=== PATIENT | female | born 1940 | race Caucasian/White ===

== ENCOUNTER 2017-11-12 06:33 | Emergency (ER) | payer BC, MEDICARE ==
[2017-11-12 07:39] VITALS: BP 138/70
--- NOTE | 2017-11-12 07:53 | ED ---
Upper Extremity Pain - HPI Summary HPI Summary: Patient is a 77-year-old female presenting to the ED with chief complaint of right wrist injury. She states she fell on an outstretched hand last evening while walking her dog. Endorses pain circumferentially both to the dorsum and volar wrists. Decreased ROM. Denies any numbness or tingling throughout. Denies any other injuries. - History of Current Complaint Chief Complaint: EDExtremityUpper Stated Complaint: RT ARM INJURY Time Seen by Provider: 11/12/17 06:41 Hx Obtained From: Patient Onset/Duration: Started Hours Ago Timing: Constant Severity Initially: Moderate Severity Currently: Moderate Pain Location: Wrist Character: Aching Aggravating Factor(s): Movement, Lifting, Flexion, Extension, Internal/External Rotation Alleviating Factor(s): Rest Associated Signs & Symptoms: Negative: Swelling, Redness, Bruising, Weakness, Numbness/Tingling Related History: Dominant Hand Right - Risk Factors Non-Orthopedic Risk Factor: Negative DVT Risk Factors: Negative Septic Arthritis Risk Factor: Negative Compartment Syndrome Risk Factors: Pain - Allergies/Home Medications Allergies/Adverse Reactions: Allergies Allergy/AdvReac Type Severity Reaction Status Date / Time No Known Allergies Allergy Verified 11/12/17 06:36 PMH/Surg Hx/FS Hx/Imm Hx Previously Healthy: Yes - Immunization History Hx Pertussis Vaccination: No Immunizations Up to Date: Unable to Obtain/Confirm Infectious Disease History: No Infectious Disease History: Denies: Traveled Outside the [place] in Last 30 Days - Social History Occupation: Unemployed Lives: With Family Alcohol Use: Rare Hx Substance Use: No Substance Use Type: Reports: None Hx Tobacco Use: No Smoking Status (MU): Never Smoked Tobacco Review of Systems Constitutional: Negative Negative: Fever, Chills, Fatigue, Skin Diaphoresis Negative: Palpitations, Chest Pain Negative: Shortness Of Breath, Cough Gastrointestinal: Negative Positive: Arthralgia Skin: Negative Neurological: Negative All Other Systems Reviewed And Are Negative: Yes Physical Exam Triage Information Reviewed: Yes Vital Signs On Initial Exam: Initial Vitals Temp Pulse Resp BP Pulse Ox 98.5 F 72 20 140/79 95 11/12/17 06:34 11/12/17 06:34 11/12/17 06:34 11/12/17 06:34 11/12/17 06:34 Vital Signs Reviewed: Yes Appearance: Positive: Well-Appearing, No Pain Distress Skin: Positive: Warm, Skin Color Reflects Adequate Perfusion Head/Face: Positive: Normal Head/Face Inspection Eyes: Positive: EOMI, MYRANDA, Conjunctiva Clear Neck: Positive: Supple, No Lymphadenopathy Respiratory/Lung Sounds: Positive: Clear to Auscultation, Breath Sounds Present Cardiovascular: Positive: RRR, Pulses are Symmetrical in both Upper and Lower Extremities Musculoskeletal: Positive: Pain @ - dorsum of the left wrist on palpation - no deformity or ecchymosis noted. Decreased ROM d/t pain Neurological: Positive: Sensory/Motor Intact, Alert, Oriented to Person Place, Time Psychiatric: Positive: Normal Diagnostics - Vital Signs Vital Signs Temp Pulse Resp BP Pulse Ox 11/12/17 07:38 98.4 F 73 16 138/70 95 11/12/17 06:34 98.5 F 72 20 140/79 95 - Laboratory Lab Statement: Any lab studies that have been ordered have been reviewed, and results considered in the medical decision making process. Course/Dx - Course Course Of Treatment: Patient is evaluated for right wrist injury. No obvious deformity. No ecchymosis or erythema. Decreased range of motion. Unable to oppose thumbs. Has not taken any medications [employer]. X-ray obtained which shows no acute fracture. Read by myself, Sera Zabala PA-C as well as Dr. Sparkle M.D. Thumb spica splint placed. - Diagnoses Differential Diagnosis/HQI/PQRI: Positive: Fracture (Closed), Strain, Sprain Provider Diagnoses: Right wrist sprain Discharge - Sign-Out/Discharge Documenting (check all that apply): Patient Departure - Discharge Plan Condition: Stable Disposition: HOME Patient Education Materials: Wrist Sprain (ED) Referrals: No Primary Care Phys,NOPCP [Primary Care Provider] - Additional Instructions: Ibuprofen 600mg three times daily as needed for pain Wrist splint for comfort If you develop any worsening symptoms - return to the ED - Billing Disposition and Condition Condition: STABLE Disposition: Home
--- NOTE | 2017-11-12 08:16 | RAD ---
Indication: Right wrist pain 3 views of the wrist demonstrates no fracture. There may be some degeneration and joint space the radiocarpal joint. Deformity of the distal ulna likely due to old injury. Degenerative changes of the first metacarpal phalangeal joint is noted. IMPRESSION: NO FRACTURE OF THE WRIST IS NOTED. DEGENERATIVE CHANGES OF THE RADIOCARPAL JOINT. DEFORMITY OF THE DISTAL ULNA LIKELY DUE TO OLD INJURY. 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
== END 2017-11-12 07:38 | disposition home or self-care (01) ==
LOC: ED 06:33
DX: S63.501A Unspecified sprain of right wrist, initial encounter (principal); W19.XXXA Unspecified fall, initial encounter; Y92.9 Unspecified place or not applicable
CPT/HCPCS: 99282